=== PATIENT | female | born 2000 | race Caucasian/White ===

== ENCOUNTER 2020-09-05 09:36 | Emergency (ER) | payer OTHER ==
[2020-09-05 09:44] VITALS: BP 131/72
[2020-09-05] MEDS ORDERED: HYDROCODONE/ACETAMINOPHEN 5-325 MG TABLET PO ONE (09:58)
--- NOTE | 2020-09-05 09:59 | ER Document Report ---
HPI - HPI Patient complains to provider of: Right hand injury Time Seen by Provider: 09/05/20 09:52 Onset: This morning Onset/Duration: Sudden Quality of pain: Achy Pain Level: 2 Context: She states that she punched a wooden floor. Patient complains of right hand pain with swelling. Patient states she injured her hand just prior to arrival. Patient is right-hand dominant. Patient states she has fractured her fifth metacarpal in the past. Associated Symptoms: Other - Right hand injury Exacerbated by: Movement Relieved by: Denies Similar symptoms previously: Yes Recently seen / treated by doctor: No - ROS ROS below otherwise negative: Yes Systems Reviewed and Negative: Yes All other systems reviewed and negative - NEURO Neurology: DENIES: Weakness - GASTROINTESTINAL Gastrointestinal: DENIES: Nausea - MUSCULOSKELETAL Musculoskeletal: REPORTS: Extremity pain, Swelling - DERM Skin Color: Normal Skin Problems: None Past Medical History - General Information source: Patient - Social History Smoking Status: Never Smoker Frequency of alcohol use: None Drug Abuse: None Occupation: Active duty Lives with: Spouse/Significant other Family History: Reviewed & Not Pertinent Renal/ Medical History: Reports: Hx Ovarian Cysts Surgical Hx: Negative Vertical Provider Document - CONSTITUTIONAL Agree With Documented VS: Yes Exam Limitations: No Limitations General Appearance: WD/WN, No Apparent Distress - HEENT HEENT: Atraumatic, Normocephalic - NECK Neck: Normal Inspection - RESPIRATORY Respiratory: Breath Sounds Normal, No Respiratory Distress - CARDIOVASCULAR Cardiovascular: Regular Rate, Regular Rhythm Pulses: Normal: Radial - MUSCULOSKELETAL/EXTREMETIES Musculoskeletal/Extremeties: MAEW, Tender - Right fifth metacarpal tenderness with deformity, normal cap refill to fingers of right hand, Edema - NEURO Level of Consciousness: Awake, Alert, Appropriate Motor/Sensory: No Motor Deficit - DERM Integumentary: Warm, Dry, No Rash Course - Re-evaluation Re-evalutation: 09/05/20 10:11 Patient with a right fifth metacarpal fracture, will immobilize and refer to orthopedics for further management at this time. - Vital Signs Vital signs: Temp Pulse Resp BP Pulse Ox 98.9 F 97 16 131/72 H 100 09/05/20 09:41 09/05/20 09:41 09/05/20 09:41 09/05/20 09:41 09/05/20 09:41 - Diagnostic Test Radiology reviewed: Pending, Image reviewed Procedures - Immobilization Right Hand Pre-Proc Neuro Vasc Exam: Normal Immobilizer type: Ulnar Performed by: PCT Post-Proc Neuro Vasc Exam: Normal Alignment checked and good: Yes Discharge - Discharge Clinical Impression: Metacarpal bone fracture Qualifiers: Encounter type: initial encounter Metacarpal bone: fifth Fracture type: closed Metacarpal location: shaft Fracture alignment: displaced Laterality: right Qualified Code(s): S62.326A - Displaced fracture of shaft of fifth metacarpal bone, right hand, initial encounter for closed fracture Condition: Stable Disposition: HOME, SELF-CARE Instructions: Fractured Fifth Metacarpal ([facility]), Ice & Elevation ([facility]), Oral Narcotic Medication ([facility]), Splint Precautions ([facility]) Additional Instructions: Return immediately for any new or worsening symptoms Followup with your primary care provider, call tomorrow to make a followup appointment Follow-up with orthopedics for further management. Your primary doctor can make this referral for you. Prescriptions: Naproxen [Naprosyn 250 Nmg Tablet] 1 tab PO BID #14 tablet Hydrocodone/Acetaminophen [[place] 5-325 mg Tablet] 1 tab PO Q6 PRN #12 tablet PRN Reason: Referrals: [facility] [Provider Group] - Follow up tomorrow [facility] [Provider Group] - 09/07/20
--- NOTE | 2020-09-05 10:29 | RADIOLOGY REPORT (SQ) ---
EXAM DESCRIPTION: HAND RIGHT 3 VIEWS IMAGES COMPLETED DATE/TIME: 09/05/2020 10:04 am REASON FOR STUDY: punched floor, R 5th MC pain COMPARISON: None. EXAM PARAMETERS: NUMBER OF VIEWS: Three views. TECHNIQUE: AP, lateral and oblique radiographic images acquired of the right hand. LIMITATIONS: None. FINDINGS: MINERALIZATION: Normal. BONES: 5th metacarpal diaphyseal fracture with approximately 30 dorsal angulation, no significant di splacement. JOINTS: No effusion. SOFT TISSUES: Dorsal soft tissue swelling. No radiopaque foreign body. OTHER: No other significant finding. IMPRESSION: 5th metacarpal diaphyseal fracture with approximately 30 dorsal angulation, no signific ant displacement. TECHNICAL DOCUMENTATION: JOB ID: [id number] [place]-72 2010 [employer]- All Rights Reserved Reading location - IP/workstation name: [email or web address]
== END 2020-09-05 10:43 | disposition home or self-care (01) ==
LOC: ER 09:36
DX: S62.326A Displaced fracture of shaft of fifth metacarpal bone, right hand, initial encounter for closed fracture (principal); X58.XXXA Exposure to other specified factors, initial encounter
CPT/HCPCS: 99284